=== PATIENT | male | born 1940 | race Two or more races ===

== ENCOUNTER 2019-02-26 23:28 | Inpatient (IN) | payer OTHER ==
[~2019-02-26] VITALS: Ht 165.1 cm; Wt 81.2 kg
[2019-02-27] VITALS (7 sets, daily range): BP systolic 118–154; BP diastolic 54–70
[2019-02-27] MEDS ORDERED: TAMS-12 PO (03:42)
[2019-02-27] MEDS ORDERED: ACET325C7 PO (03:42)
[2019-02-27] MEDS ORDERED: GUAI-717 PO (03:42)
[2019-02-27] MEDS ORDERED: PIOG15TA8 PO (03:42)
[2019-02-27] MEDS ORDERED: LEVO500T90 PO (03:42)
[2019-02-27] MEDS ORDERED: ASPI-1152 PO (03:42)
[2019-02-27] MEDS ORDERED: AMLO10TA7 PO (03:42)
[2019-02-27] MEDS ORDERED: FENO160T PO (03:42)
[2019-02-27] MEDS ORDERED: MAGNESIUM HYDROXIDE 30 ML UDC PO PRN (05:00)
[2019-02-27] MEDS ORDERED: HYDROCODONE/APAP 5/325MG 1 EACH TABLET PO PRN (05:00)
[2019-02-27] MEDS ORDERED: MAG HYDROX/AL HYDROX/SIMETH 30 ML UDC PO PRN (05:00)
[2019-02-27] MEDS ORDERED: Z GUARD REMEDY 2 OZ OINT TP PRN (05:00)
[2019-02-27 06:59] LABS: BASOPHILS % (AUTO) 0.3 % (0.0-2.0); HEMATOCRIT 30 % (39-51); HEMOGLOBIN 9.9 g/dL (13.5-17.5); LYMPHOCYTES # (AUTO) 0.5 /CMM (0.8-4.8); LYMPHOCYTES % (AUTO) 7.9 % (20.0-44.0); MEAN CORPUSCULAR HGB CONC 33 g/dl (31.0-36.0); MEAN CORPUSCULAR VOLUME 81 fL (80-96); MONOCYTES # (AUTO) 0.5 /CMM (0.1-1.30); MONOCYTES % (AUTO) 8.3 % (2.0-12.0); NEUTROPHILS # (AUTO) 4.6 /CMM (1.8-8.9); NEUTROPHILS % (AUTO) 73.5 % (43.0-81.0); PLATELET COUNT (AUTO) 273 /CMM (150-450); WHITE BLOOD COUNT (AUTO) 6.2 K/uL (4.3-11.0)
[2019-02-27 07:03] LABS: CALCIUM, SERUM 8.3 mg/dL (8.5-10.1); CARBON DIOXIDE 25 mmol/L (21-32); CHLORIDE 104 mmol/L (98-107); CREATININE 1.4 mg/dL (0.6-1.3); GLUCOSE 175 mg/dL (74-106); SODIUM SERUM 139 mmol/L (136-145); UREA NITROGEN, BLOOD 18 mg/dL (7-18)
[2019-02-27 07:15] LABS: ALANINE AMINOTRANSFERASE 35 U/L (12-78); ALKALINE PHOSPHATASE 113 U/L (46-116); ASPARTATE AMINOTRANSFERASE 31 U/L (15-37); BILIRUBIN,TOTAL 0.4 mg/dL (0.2-1.0); MAGNESIUM 1.8 mg/dL (1.8-2.4); PHOSPHORUS 3.2 mg/dL (2.5-4.9)
[2019-02-27 07:16] LABS: CHOLESTEROL 97 mg/dL (<200); LDL 40 mg/dL (0-99); THYROID STIMULATING HORMONE 1.185 uIU/mL (0.358-3.74); TRIGLYCERIDES 221 mg/dL (30-150)
[2019-02-27 07:42] LABS: HDL CHOLESTEROL < 10 mg/dL (40-60)
[2019-02-27] MEDS: TAMSULOSIN 0.4 MG CAP.SR.24H PO SCH (08:31)
[2019-02-27] MEDS: ASPIRIN EC 81 MG TABLET.DR PO SCH (08:31)
[2019-02-27] MEDS: PIOGLITAZONE HCL 15 MG TABLET PO SCH (08:33)
[2019-02-27] MEDS: AMLODIPINE BESYLATE 10 MG TABLET PO SCH (08:33)
[2019-02-27] MEDS: ACETAMINOPHEN 325 MG TABLET PO PRN (15:45)
[2019-02-27] MEDS: ONDANSETRON HCL/PF 4 MG/2 ML VIAL IVP PRN (18:27)
[2019-02-27] MEDS: AZITHROMYCIN 500 MG in IV D5W 250 ML IV SCH (20:22)
[2019-02-27] MEDS: CEFTRIAXONE 2 G in IV D5W 100 ML IV SCH (21:05)
[2019-02-28] MEDS: ACETAMINOPHEN 325 MG TABLET PO PRN ×3 (00:25→15:48)
[2019-02-28 06:23] LABS: BASOPHILS % (AUTO) 0.3 % (0.0-2.0); HEMATOCRIT 31 % (39-51); HEMOGLOBIN 10.2 g/dL (13.5-17.5); LYMPHOCYTES # (AUTO) 0.5 /CMM (0.8-4.8); LYMPHOCYTES % (AUTO) 6.7 % (20.0-44.0); MEAN CORPUSCULAR HGB CONC 33 g/dl (31.0-36.0); MEAN CORPUSCULAR VOLUME 80 fL (80-96); MONOCYTES # (AUTO) 0.5 /CMM (0.1-1.30); NEUTROPHILS # (AUTO) 5.2 /CMM (1.8-8.9); PLATELET COUNT (AUTO) 298 /CMM (150-450); RED BLOOD CELL COUNT(AUTO) 3.82 MIL/uL (4.5-6.0); WHITE BLOOD COUNT (AUTO) 6.8 K/uL (4.3-11.0)
[2019-02-28 06:43] LABS: THYROID STIMULATING HORMONE 1.328 uIU/mL (0.358-3.74)
[2019-02-28 07:50] LABS: CALCIUM, SERUM 8.4 mg/dL (8.5-10.1); CARBON DIOXIDE 25 mmol/L (21-32); CHLORIDE 100 mmol/L (98-107); CREATININE 1.5 mg/dL (0.6-1.3); GLUCOSE 195 mg/dL (74-106); PHOSPHORUS 2.5 mg/dL (2.5-4.9); SODIUM SERUM 135 mmol/L (136-145); UREA NITROGEN, BLOOD 15 mg/dL (7-18)
[2019-02-28 07:53] VITALS: BP 136/69
[2019-02-28 08:00] VITALS: BP 136/69
[2019-02-28 08:02] LABS: MAGNESIUM 1.8 mg/dL (1.8-2.4)
[2019-02-28] MEDS: IV NS 0.9% 1,000 ML IV SCH ×2 (09:12→22:18)
[2019-02-28] MEDS: TAMSULOSIN 0.4 MG CAP.SR.24H PO SCH (09:13)
[2019-02-28] MEDS: AMLODIPINE BESYLATE 10 MG TABLET PO SCH (09:13)
[2019-02-28] MEDS: ASPIRIN EC 81 MG TABLET.DR PO SCH (09:13)
[2019-02-28] MEDS: PIOGLITAZONE HCL 15 MG TABLET PO SCH (09:13)
[2019-02-28 16:00] VITALS: BP 140/63
[2019-02-28] MEDS: CEFTRIAXONE 2 G in IV D5W 100 ML IV SCH ×2 (18:19→20:37)
[2019-02-28] MEDS: AZITHROMYCIN 500 MG in IV D5W 250 ML IV SCH (19:25)
[2019-02-28 20:00] VITALS: BP 128/61
[2019-02-28] MEDS: GUAIFENESIN/D-METHORPHAN HB 5 ML UDC PO PRN (23:04)
[2019-03-01] MEDS: ACETAMINOPHEN 325 MG TABLET PO PRN ×2 (05:40→15:37)
[2019-03-01 07:12] LABS: BASOPHILS % (AUTO) 0.3 % (0.0-2.0); HEMATOCRIT 33 % (39-51); HEMOGLOBIN 10.7 g/dL (13.5-17.5); LYMPHOCYTES # (AUTO) 0.6 /CMM (0.8-4.8); LYMPHOCYTES % (AUTO) 5.6 % (20.0-44.0); MEAN CORPUSCULAR HGB CONC 33 g/dl (31.0-36.0); MEAN CORPUSCULAR VOLUME 80 fL (80-96); MONOCYTES # (AUTO) 0.7 /CMM (0.1-1.30); MONOCYTES % (AUTO) 6.9 % (2.0-12.0); NEUTROPHILS # (AUTO) 7.9 /CMM (1.8-8.9); NEUTROPHILS % (AUTO) 81.2 % (43.0-81.0); PLATELET COUNT (AUTO) 337 /CMM (150-450); RED BLOOD CELL COUNT(AUTO) 4.07 MIL/uL (4.5-6.0); WHITE BLOOD COUNT (AUTO) 9.8 K/uL (4.3-11.0)
[2019-03-01 07:20] LABS: CALCIUM, SERUM 8.7 mg/dL (8.5-10.1); CARBON DIOXIDE 25 mmol/L (21-32); CHLORIDE 96 mmol/L (98-107); CREATININE 1.6 mg/dL (0.6-1.3); GLUCOSE 230 mg/dL (74-106); POTASSIUM 4.1 mmol/L (3.5-5.1); SODIUM SERUM 128 mmol/L (136-145); UREA NITROGEN, BLOOD 16 mg/dL (7-18)
[2019-03-01 08:00] VITALS: BP 122/61
[2019-03-01] MEDS: ASPIRIN EC 81 MG TABLET.DR PO SCH (08:59)
[2019-03-01] MEDS: AMLODIPINE BESYLATE 10 MG TABLET PO SCH (08:59)
[2019-03-01] MEDS: TAMSULOSIN 0.4 MG CAP.SR.24H PO SCH (08:59)
[2019-03-01] MEDS: PIOGLITAZONE HCL 15 MG TABLET PO SCH (08:59)
[2019-03-01] MEDS: IV NS 0.9% 1,000 ML IV SCH ×2 (10:44→21:34)
[2019-03-01] MEDS ORDERED: DEXTROSE 50%-WATER 50 ML DISP.SYRIN IV PRN (11:30)
[2019-03-01] MEDS: INSULIN REGULAR, HUMAN 100 UNIT/ML 3 ML VIAL SQ PRN ×3 (12:09→21:33)
[2019-03-01] MEDS: BLOOD SUGAR DIAGNOSTIC 1 EACH STRIP IN SCH ×3 (12:16→21:32)
[2019-03-01 16:00] VITALS: BP 144/62
[2019-03-01] MEDS: AZITHROMYCIN 500 MG in IV D5W 250 ML IV SCH (19:29)
[2019-03-01] MEDS: GUAIFENESIN/D-METHORPHAN HB 5 ML UDC PO PRN (19:51)
[2019-03-01 20:00] VITALS: BP 135/68
[2019-03-01 20:26] LABS: APPEARANCE,URINE Clear (CLEAR); BILIRUBIN,URINE Negative (NEGATIVE); BLOOD, URINE Negative Ery/uL (NEGATIVE); COLOR,URINE Yellow (YELLOW); KETONES,URINE Negative (NEGATIVE); LEUKOCYTE ESTERASE ,URINE Negative (NEGATIVE); NITRITE, URINE Negative (NEGATIVE); PH,URINE 5.5 (5.0-8.0); PROTEIN,URINE 30 mg/dl (NEGATIVE); UGLUCOSE Negative (NEGATIVE)
[2019-03-01] MEDS: CEFTRIAXONE 2 G in IV D5W 100 ML IV SCH (20:32)
[2019-03-01 21:06] LABS: BACTERIA,URINE Rare /HPF (None Seen); RBC,URINE 0-2 /HPF (0-2); SQUAMOUS EPITHELIAL CELL,UR Rare /HPF (None Seen)
[2019-03-02] MEDS: ACETAMINOPHEN 325 MG TABLET PO PRN ×3 (00:28→18:02)
[2019-03-02] MEDS: GUAIFENESIN/D-METHORPHAN HB 5 ML UDC PO PRN (03:31)
[2019-03-02] MEDS: BLOOD SUGAR DIAGNOSTIC 1 EACH STRIP IN SCH ×4 (06:45→21:32)
[2019-03-02] MEDS: INSULIN REGULAR, HUMAN 100 UNIT/ML 3 ML VIAL SQ PRN ×4 (06:46→21:31)
[2019-03-02 08:00] VITALS: BP 104/50
[2019-03-02] MEDS: ASPIRIN EC 81 MG TABLET.DR PO SCH (08:55)
[2019-03-02] MEDS: TAMSULOSIN 0.4 MG CAP.SR.24H PO SCH (08:56)
[2019-03-02] MEDS: PIOGLITAZONE HCL 15 MG TABLET PO SCH (08:56)
[2019-03-02] MEDS: IV NS 0.9% 1,000 ML IV SCH (08:57)
[2019-03-02] MEDS ORDERED: FUROSEMIDE 40 MG/4 ML VIAL IV SCH (09:00)
[2019-03-02] MEDS: AMLODIPINE BESYLATE 10 MG TABLET PO SCH (09:00)
[2019-03-02] MEDS: FUROSEMIDE 40 MG/4 ML VIAL IV SCH ×3 (10:53→18:37)
[2019-03-02] MEDS: AZITHROMYCIN 250 MG TABLET PO SCH (18:00)
[2019-03-02] MEDS: CEFTRIAXONE 2 G in IV D5W 100 ML IV SCH (19:50)
[2019-03-02 20:00] VITALS: BP 138/63
[2019-03-03] MEDS: GUAIFENESIN/D-METHORPHAN HB 5 ML UDC PO PRN ×2 (03:00→06:40)
[2019-03-03] MEDS: ACETAMINOPHEN 325 MG TABLET PO PRN ×2 (03:10→15:15)
[2019-03-03 07:23] LABS: BASOPHILS # (AUTO) 0.3 /CMM (0.0-0.2); BASOPHILS % (AUTO) 2.5 % (0.0-2.0); EOSINOPHILS % (AUTO) 6.8 % (0.0-6.0); HEMATOCRIT 29 % (39-51); HEMOGLOBIN 9.9 g/dL (13.5-17.5); LYMPHOCYTES # (AUTO) 0.5 /CMM (0.8-4.8); LYMPHOCYTES % (AUTO) 4.7 % (20.0-44.0); MEAN CORPUSCULAR HGB CONC 34 g/dl (31.0-36.0); MEAN CORPUSCULAR VOLUME 78 fL (80-96); MONOCYTES # (AUTO) 0.4 /CMM (0.1-1.30); MONOCYTES % (AUTO) 3.5 % (2.0-12.0); NEUTROPHILS # (AUTO) 9.5 /CMM (1.8-8.9); NEUTROPHILS % (AUTO) 82.5 % (43.0-81.0); PLATELET COUNT (AUTO) 335 /CMM (150-450); RED BLOOD CELL COUNT(AUTO) 3.73 MIL/uL (4.5-6.0); WHITE BLOOD COUNT (AUTO) 11.5 K/uL (4.3-11.0)
[2019-03-03 07:41] LABS: ALANINE AMINOTRANSFERASE 46 U/L (12-78); ALBUMIN 1.7 g/dL (3.4-5.0); ALKALINE PHOSPHATASE 213 U/L (46-116); ASPARTATE AMINOTRANSFERASE 46 U/L (15-37); BILIRUBIN,TOTAL 0.6 mg/dL (0.2-1.0); CALCIUM, SERUM 8.4 mg/dL (8.5-10.1); CARBON DIOXIDE 28 mmol/L (21-32); CHLORIDE 95 mmol/L (98-107); CREATININE 1.8 mg/dL (0.6-1.3); GLUCOSE 226 mg/dL (74-106); MAGNESIUM 1.7 mg/dL (1.8-2.4); PHOSPHORUS 2.7 mg/dL (2.5-4.9); POTASSIUM 3.5 mmol/L (3.5-5.1); SODIUM SERUM 133 mmol/L (136-145); UREA NITROGEN, BLOOD 21 mg/dL (7-18)
[2019-03-03] MEDS: BLOOD SUGAR DIAGNOSTIC 1 EACH STRIP IN SCH ×4 (07:43→21:13)
[2019-03-03] MEDS: INSULIN REGULAR, HUMAN 100 UNIT/ML 3 ML VIAL SQ PRN ×4 (07:48→21:00)
[2019-03-03 08:00] VITALS: BP 123/65
[2019-03-03] MEDS: ASPIRIN EC 81 MG TABLET.DR PO SCH (08:17)
[2019-03-03] MEDS: PIOGLITAZONE HCL 15 MG TABLET PO SCH (08:17)
[2019-03-03] MEDS: TAMSULOSIN 0.4 MG CAP.SR.24H PO SCH (08:17)
[2019-03-03] MEDS ORDERED: Magnesium 1GM/D5W 100ML PREMIX 100 ML IV SCH (11:00)
[2019-03-03] MEDS: methylPREDNISolone SOD SUCC 40 MG/ML VIAL IV SCH ×2 (13:44→17:43)
[2019-03-03] MEDS: CODEINE/PROMETHAZINE HCL 5 ML UDC PO PRN (15:15)
[2019-03-03 16:00] VITALS: BP 118/61
[2019-03-03] MEDS: AZITHROMYCIN 250 MG TABLET PO SCH (17:17)
[2019-03-03 20:16] VITALS: BP 119/56
[2019-03-03] MEDS: CEFTRIAXONE 2 G in IV D5W 100 ML IV SCH (20:55)
[2019-03-04] MEDS: INSULIN REGULAR, HUMAN 100 UNIT/ML 3 ML VIAL SQ PRN ×4 (06:25→23:03)
[2019-03-04] MEDS: BLOOD SUGAR DIAGNOSTIC 1 EACH STRIP IN SCH ×4 (06:32→22:46)
[2019-03-04 07:23] LABS: BASOPHILS # (AUTO) 0.1 /CMM (0.0-0.2); BASOPHILS % (AUTO) 0.6 % (0.0-2.0); EOSINOPHILS % (AUTO) 0.4 % (0.0-6.0); HEMATOCRIT 30 % (39-51); LYMPHOCYTES # (AUTO) 0.8 /CMM (0.8-4.8); LYMPHOCYTES % (AUTO) 8.5 % (20.0-44.0); MEAN CORPUSCULAR HGB CONC 33 g/dl (31.0-36.0); MEAN CORPUSCULAR VOLUME 79 fL (80-96); MONOCYTES # (AUTO) 0.2 /CMM (0.1-1.30); MONOCYTES % (AUTO) 2.6 % (2.0-12.0); NEUTROPHILS % (AUTO) 87.9 % (43.0-81.0); PLATELET COUNT (AUTO) 337 /CMM (150-450); WHITE BLOOD COUNT (AUTO) 9.1 K/uL (4.3-11.0)
[2019-03-04 07:46] LABS: CALCIUM, SERUM 8.9 mg/dL (8.5-10.1); CARBON DIOXIDE 28 mmol/L (21-32); CHLORIDE 95 mmol/L (98-107); CREATININE 1.9 mg/dL (0.6-1.3); GLUCOSE 327 mg/dL (74-106); MAGNESIUM 2.4 mg/dL (1.8-2.4); POTASSIUM 4.1 mmol/L (3.5-5.1); SODIUM SERUM 133 mmol/L (136-145); UREA NITROGEN, BLOOD 41 mg/dL (7-18)
[2019-03-04 08:00] VITALS: BP 110/62
[2019-03-04 08:02] LABS: IRON, SERUM 19 ug/dl (50-175); TOTAL IRON BINDING CAPACITY 135 ug/dl (250-450)
[2019-03-04 08:32] LABS: BAND % (MANUAL) 1 % (0.0-5.0); LYMPHOCYTES % (MANUAL) 2 % (16-48); MONOCYTES % (MANUAL) 3 % (0-11.0); NEUTROPHILS % (MANUAL) 94 (42-76)
[2019-03-04 09:00] LABS: FERRITIN 667 ng/mL (8-388)
[2019-03-04] MEDS: ASPIRIN EC 81 MG TABLET.DR PO SCH (12:05)
[2019-03-04] MEDS: TAMSULOSIN 0.4 MG CAP.SR.24H PO SCH (12:05)
[2019-03-04] MEDS: PIOGLITAZONE HCL 15 MG TABLET PO SCH (12:05)
[2019-03-04] MEDS: methylPREDNISolone SOD SUCC 40 MG/ML VIAL IV SCH ×3 (12:05→18:21)
[2019-03-04] MEDS: CODEINE/PROMETHAZINE HCL 5 ML UDC PO PRN (15:47)
[2019-03-04] MEDS: GUAIFENESIN/D-METHORPHAN HB 5 ML UDC PO PRN (15:47)
[2019-03-04 16:00] VITALS: BP 125/65
[2019-03-04] MEDS: AZITHROMYCIN 250 MG TABLET PO SCH (18:21)
[2019-03-04 19:00] VITALS: BP 104/60
[2019-03-04 20:00] VITALS: BP 104/60
[2019-03-04] MEDS: CEFTRIAXONE 2 G in IV D5W 100 ML IV SCH (20:05)
[2019-03-05] MEDS: BLOOD SUGAR DIAGNOSTIC 1 EACH STRIP IN SCH ×4 (06:43→21:18)
[2019-03-05] MEDS: INSULIN REGULAR, HUMAN 100 UNIT/ML 3 ML VIAL SQ PRN ×4 (06:48→21:22)
[2019-03-05 08:14] VITALS: BP 106/79
[2019-03-05] MEDS: methylPREDNISolone SOD SUCC 40 MG/ML VIAL IV SCH ×3 (09:14→17:31)
[2019-03-05] MEDS: TAMSULOSIN 0.4 MG CAP.SR.24H PO SCH (09:14)
[2019-03-05] MEDS: ASPIRIN EC 81 MG TABLET.DR PO SCH (09:14)
[2019-03-05] MEDS: PIOGLITAZONE HCL 15 MG TABLET PO SCH (09:14)
[2019-03-05] MEDS: ONDANSETRON HCL/PF 4 MG/2 ML VIAL IVP PRN (12:42)
[2019-03-05 16:24] VITALS: BP 125/64
[2019-03-05] MEDS: AZITHROMYCIN 250 MG TABLET PO SCH (17:31)
[2019-03-05] MEDS ORDERED: ZOLPIDEM TARTRATE 5 MG TABLET PO PRN (19:00)
[2019-03-05 20:00] VITALS: BP 123/55
[2019-03-05] MEDS: CEFTRIAXONE 2 G in IV D5W 100 ML IV SCH (20:16)
[2019-03-06] MEDS: BLOOD SUGAR DIAGNOSTIC 1 EACH STRIP IN SCH ×3 (06:30→18:29)
[2019-03-06] MEDS: INSULIN REGULAR, HUMAN 100 UNIT/ML 3 ML VIAL SQ PRN ×2 (06:31→21:21)
[2019-03-06] MEDS: ACETAMINOPHEN 325 MG TABLET PO PRN ×2 (06:36→16:27)
[2019-03-06 07:57] LABS: BASOPHILS # (AUTO) 0.1 /CMM (0.0-0.2); BASOPHILS % (AUTO) 0.6 % (0.0-2.0); EOSINOPHILS % (AUTO) 0.1 % (0.0-6.0); HEMATOCRIT 30 % (39-51); HEMOGLOBIN 9.8 g/dL (13.5-17.5); LYMPHOCYTES # (AUTO) 0.3 /CMM (0.8-4.8); LYMPHOCYTES % (AUTO) 2.5 % (20.0-44.0); MEAN CORPUSCULAR HGB CONC 33 g/dl (31.0-36.0); MEAN CORPUSCULAR VOLUME 78 fL (80-96); MONOCYTES # (AUTO) 0.1 /CMM (0.1-1.30); MONOCYTES % (AUTO) 0.8 % (2.0-12.0); NEUTROPHILS # (AUTO) 13.1 /CMM (1.8-8.9); PLATELET COUNT (AUTO) 433 /CMM (150-450); RED BLOOD CELL COUNT(AUTO) 3.81 MIL/uL (4.5-6.0); WHITE BLOOD COUNT (AUTO) 13.6 K/uL (4.3-11.0)
[2019-03-06 08:21] LABS: CALCIUM, SERUM 8.7 mg/dL (8.5-10.1); CARBON DIOXIDE 29 mmol/L (21-32); CHLORIDE 96 mmol/L (98-107); CREATININE 1.7 mg/dL (0.6-1.3); GLUCOSE 299 mg/dL (74-106); POTASSIUM 4.4 mmol/L (3.5-5.1); SODIUM SERUM 133 mmol/L (136-145); UREA NITROGEN, BLOOD 58 mg/dL (7-18)
[2019-03-06] MEDS: methylPREDNISolone SOD SUCC 40 MG/ML VIAL IV SCH ×3 (08:31→16:27)
[2019-03-06] MEDS: PIOGLITAZONE HCL 15 MG TABLET PO SCH (08:32)
[2019-03-06] MEDS: ASPIRIN EC 81 MG TABLET.DR PO SCH (08:32)
[2019-03-06] MEDS: TAMSULOSIN 0.4 MG CAP.SR.24H PO SCH (08:32)
[2019-03-06 08:33] VITALS: BP 134/63
[2019-03-06 16:10] VITALS: BP 133/64
[2019-03-06] MEDS: AZITHROMYCIN 250 MG TABLET PO SCH (16:27)
[2019-03-06 20:00] VITALS: BP 128/69
[2019-03-06 20:10] VITALS: BP 128/69
[2019-03-06] MEDS: CEFTRIAXONE 2 G in IV D5W 100 ML IV SCH (21:00)
[2019-03-06] MEDS ORDERED: DEXTROSE 50%-WATER 50 ML DISP.SYRIN IV PRN ×2 (22:00)
[2019-03-06] MEDS ORDERED: ALBUTEROL FS 2.5 MG/0.5 ML VIAL.NEB NEB PRN (22:00)
[2019-03-06] MEDS ORDERED: IPRATROPIUM BROMIDE 14 GM INHALER (or 12.9 GM) IH PRN (22:00)
[2019-03-06 23:06] LABS: *MYCOPLASMA PNEUMONIAE IgG 112 U/mL (0-99); *MYCOPLASMA PNEUMONIAE IgM <770 U/mL (0-769)
[2019-03-06] MEDS ORDERED: IPRATROPIUM BROMIDE 14 GM INHALER (or 12.9 GM) IH SCH (23:30)
[2019-03-06] MEDS ORDERED: FUROSEMIDE 20 MG/2 ML VIAL IV ONE (23:30)
[2019-03-07] VITALS (18 sets, daily range): BP systolic 107–160; BP diastolic 54–101
[2019-03-07] MEDS: IPRATROPIUM NEB FS 0.5 MG/2.5 ML AMPUL.NEB NEB SCH ×5 (00:32→19:53)
[2019-03-07] MEDS: ALBUTEROL FS 2.5 MG/0.5 ML VIAL.NEB NEB SCH ×5 (00:32→19:53)
[2019-03-07] MEDS: BLOOD SUGAR DIAGNOSTIC 1 EACH STRIP IN SCH ×6 (01:25→21:38)
[2019-03-07] MEDS: INSULIN REGULAR, HUMAN 100 UNIT/ML 3 ML VIAL SQ PRN ×3 (01:26→17:16)
[2019-03-07] MEDS ORDERED: FUROSEMIDE 40 MG/4 ML VIAL IV SCH (02:00)
[2019-03-07] MEDS: ACETAMINOPHEN 325 MG TABLET PO PRN ×2 (04:26→11:39)
[2019-03-07 05:31] LABS: BASOPHILS # (AUTO) 0.2 /CMM (0.0-0.2); BASOPHILS % (AUTO) 1.6 % (0.0-2.0); HEMATOCRIT 33 % (39-51); HEMOGLOBIN 10.9 g/dL (13.5-17.5); LYMPHOCYTES # (AUTO) 0.3 /CMM (0.8-4.8); LYMPHOCYTES % (AUTO) 2.2 % (20.0-44.0); MEAN CORPUSCULAR HGB CONC 33 g/dl (31.0-36.0); MEAN CORPUSCULAR VOLUME 80 fL (80-96); MONOCYTES % (AUTO) 0.3 % (2.0-12.0); NEUTROPHILS # (AUTO) 13.6 /CMM (1.8-8.9); NEUTROPHILS % (AUTO) 95.9 % (43.0-81.0); PLATELET COUNT (AUTO) 456 /CMM (150-450); RED BLOOD CELL COUNT(AUTO) 4.21 MIL/uL (4.5-6.0); WHITE BLOOD COUNT (AUTO) 14.2 K/uL (4.3-11.0)
[2019-03-07 06:03] LABS: CALCIUM, SERUM 8.7 mg/dL (8.5-10.1); CARBON DIOXIDE 31 mmol/L (21-32); CHLORIDE 95 mmol/L (98-107); CREATININE 1.9 mg/dL (0.6-1.3); GLUCOSE 340 mg/dL (74-106); SODIUM SERUM 134 mmol/L (136-145); UREA NITROGEN, BLOOD 53 mg/dL (7-18)
[2019-03-07] MEDS ORDERED: BUMETANIDE INJ 8 MG in IV NS 0.9% 48 ML IV ONE (06:30)
[2019-03-07 06:58] LABS: ABG BASE EXCESS 2.9 mmol/L; ABG OXYGEN SATURATION 81.7 % (92.0-98.5); ABG PCO2 39.2 mmHg (35.0-45.0); ABG PH 7.455 (7.350-7.450); ABG PO2 49.2 mmHg (75.0-100.0); AaDO2 400.5 mmHg; COHb 0.1 % (0.5-1.5); MetHb 0.4 % (0.0-1.5); O2Hb 81.3 % (94.0-97.0); SITE, ABG Right Radial; VENT MODE, BG SIMPLE MASK
[2019-03-07] MEDS ORDERED: *INSULIN REGULAR(HUMULIN R)HUM 100 UNIT/ML VIAL SQ PRN ×2 (07:00→07:30)
[2019-03-07] MEDS ORDERED: INSULIN REGULAR, HUMAN 100 UNIT/ML 3 ML VIAL SQ PRN ×3 (07:00→10:30)
[2019-03-07 07:31] LABS: ABG BASE EXCESS 7.5 mmol/L; ABG OXYGEN SATURATION 97.9 % (92.0-98.5); ABG PCO2 40.2 mmHg (35.0-45.0); ABG PH 7.507 (7.350-7.450); ABG PO2 135.4 mmHg (75.0-100.0); AaDO2 537.4 mmHg; COHb 0.3 % (0.5-1.5); MetHb 0.6 % (0.0-1.5)
[2019-03-07] MEDS: methylPREDNISolone SOD SUCC 40 MG/ML VIAL IV SCH ×3 (09:30→17:16)
[2019-03-07] MEDS: ASPIRIN EC 81 MG TABLET.DR PO SCH (09:30)
[2019-03-07] MEDS: TAMSULOSIN 0.4 MG CAP.SR.24H PO SCH (09:30)
[2019-03-07] MEDS ORDERED: BLOOD SUGAR DIAGNOSTIC 1 EACH STRIP IN SCH (10:30)
[2019-03-07] MEDS ORDERED: DEXTROSE 50%-WATER 50 ML DISP.SYRIN IV PRN ×2 (10:30→13:30)
[2019-03-07] MEDS: MICAFUNGIN SODIUM 50 MG in IV NS 0.9% 100 ML IV SCH (11:40)
[2019-03-07] MEDS: AZITHROMYCIN 250 MG TABLET PO SCH (17:16)
[2019-03-07] MEDS ORDERED: FEE PK DOSING 1 MIN EA MC ONE (19:45)
[2019-03-07] MEDS: CEFEPIME 1 GM in IV D5W 50 ML IV SCH (21:06)
[2019-03-07] MEDS: VANCOMYCIN 0.75 GM in IV D5W 250 ML IV SCH (21:07)
[2019-03-07] MEDS: *INSULIN REGULAR(HUMULIN R)HUM 100 UNIT/ML VIAL SQ PRN (21:41)
[2019-03-08] VITALS (26 sets, daily range): BP systolic 99–154; BP diastolic 47–72
[2019-03-08 02:03] LABS: ABG BASE EXCESS 9.4 mmol/L; ABG PCO2 41.6 mmHg (35.0-45.0); ABG PH 7.519 (7.350-7.450); AaDO2 577.2 mmHg; COHb 0.3 % (0.5-1.5); MetHb 0.7 % (0.0-1.5); O2Hb 88.1 % (94.0-97.0); SITE, ABG Right Brachial; VENT MODE, BG HIGH FLOW 50L 95%
[2019-03-08 04:56] LABS: BASOPHILS # (AUTO) 0.2 /CMM (0.0-0.2); BASOPHILS % (AUTO) 1.5 % (0.0-2.0); EOSINOPHILS % (AUTO) 0.1 % (0.0-6.0); HEMATOCRIT 33 % (39-51); HEMOGLOBIN 10.9 g/dL (13.5-17.5); LYMPHOCYTES # (AUTO) 0.2 /CMM (0.8-4.8); LYMPHOCYTES % (AUTO) 1.7 % (20.0-44.0); MEAN CORPUSCULAR HGB CONC 33 g/dl (31.0-36.0); MEAN CORPUSCULAR VOLUME 80 fL (80-96); MONOCYTES % (AUTO) 0.2 % (2.0-12.0); NEUTROPHILS # (AUTO) 11.4 /CMM (1.8-8.9); NEUTROPHILS % (AUTO) 96.5 % (43.0-81.0); PLATELET COUNT (AUTO) 388 /CMM (150-450); RED BLOOD CELL COUNT(AUTO) 4.15 MIL/uL (4.5-6.0); WHITE BLOOD COUNT (AUTO) 11.8 K/uL (4.3-11.0)
[2019-03-08 05:01] LABS: ALANINE AMINOTRANSFERASE 34 U/L (12-78); ALBUMIN 1.8 g/dL (3.4-5.0); ALKALINE PHOSPHATASE 155 U/L (46-116); ASPARTATE AMINOTRANSFERASE 30 U/L (15-37); BILIRUBIN,TOTAL 0.5 mg/dL (0.2-1.0); CALCIUM, SERUM 8.3 mg/dL (8.5-10.1); CARBON DIOXIDE 36 mmol/L (21-32); CHLORIDE 90 mmol/L (98-107); CREATININE 1.7 mg/dL (0.6-1.3); GLUCOSE 305 mg/dL (74-106); MAGNESIUM 2.1 mg/dL (1.8-2.4); PHOSPHORUS 4.3 mg/dL (2.5-4.9); POTASSIUM 3.6 mmol/L (3.5-5.1); SODIUM SERUM 134 mmol/L (136-145); TOTAL PROTEIN, SERUM 6.5 g/dL (6.4-8.2); UREA NITROGEN, BLOOD 52 mg/dL (7-18)
[2019-03-08] MEDS: IPRATROPIUM NEB FS 0.5 MG/2.5 ML AMPUL.NEB NEB SCH ×4 (07:22→19:19)
[2019-03-08] MEDS: ALBUTEROL FS 2.5 MG/0.5 ML VIAL.NEB NEB SCH ×4 (07:22→19:19)
[2019-03-08] MEDS: INSULIN REGULAR, HUMAN 100 UNIT/ML 3 ML VIAL SQ PRN ×3 (07:23→17:30)
[2019-03-08] MEDS: BLOOD SUGAR DIAGNOSTIC 1 EACH STRIP IN SCH ×4 (07:24→22:37)
[2019-03-08] MEDS: TAMSULOSIN 0.4 MG CAP.SR.24H PO SCH (08:21)
[2019-03-08] MEDS: methylPREDNISolone SOD SUCC 40 MG/ML VIAL IV SCH ×3 (08:21→17:28)
[2019-03-08] MEDS: ACETAMINOPHEN 325 MG TABLET PO PRN ×2 (08:21→18:58)
[2019-03-08] MEDS: ASPIRIN EC 81 MG TABLET.DR PO SCH (08:21)
[2019-03-08] MEDS: CEFEPIME 1 GM in IV D5W 50 ML IV SCH (08:22)
[2019-03-08] MEDS ORDERED: BUMETANIDE INJ 0.25 MG/ML VIAL IV SCH (09:30)
[2019-03-08] MEDS: MICAFUNGIN SODIUM 50 MG in IV NS 0.9% 100 ML IV SCH (10:36)
[2019-03-08 10:50] LABS: ABG BASE EXCESS 9.8 mmol/L; ABG OXYGEN SATURATION 95.8 % (92.0-98.5); ABG PCO2 41.9 mmHg (35.0-45.0); ABG PH 7.521 (7.350-7.450); ABG PO2 84.9 mmHg (75.0-100.0); AaDO2 586.2 mmHg; COHb 0.3 % (0.5-1.5); MetHb 0.5 % (0.0-1.5); SITE, ABG Right Brachial; VENT MODE, BG 100% high flow nasal cann
[2019-03-08] MEDS: VANCOMYCIN 0.75 GM in IV D5W 250 ML IV SCH (14:44)
[2019-03-08] MEDS: GLUCERNA SHAKE 237 ML CAN PO SCH (17:30)
[2019-03-08] MEDS: MEROPENEM 500 MG in IV NS 0.9% 50 ML IV SCH (20:00)
[2019-03-08] MEDS ORDERED: INSULIN DETEMIR 100 UNIT/ML CARTRIDGE SQ SCH (22:00)
[2019-03-08] MEDS: INSULIN GLARGINE, 100 UNIT/ML CARTRIDGE SQ SCH (22:38)
[2019-03-09] VITALS (24 sets, daily range): BP systolic 107–154; BP diastolic 52–94
[2019-03-09] MEDS: ACETAMINOPHEN 325 MG TABLET PO PRN ×3 (00:48→16:28)
[2019-03-09] MEDS: GUAIFENESIN/D-METHORPHAN HB 5 ML UDC PO PRN ×3 (00:48→21:20)
[2019-03-09 04:27] LABS: CALCIUM, SERUM 8.4 mg/dL (8.5-10.1); CARBON DIOXIDE 37 mmol/L (21-32); CHLORIDE 92 mmol/L (98-107); GLUCOSE 176 mg/dL (74-106); POTASSIUM 3.5 mmol/L (3.5-5.1); SODIUM SERUM 134 mmol/L (136-145)
[2019-03-09 04:38] LABS: UREA NITROGEN, BLOOD 63 mg/dL (7-18)
[2019-03-09] MEDS: BLOOD SUGAR DIAGNOSTIC 1 EACH STRIP IN SCH ×4 (07:35→22:16)
[2019-03-09 07:43] LABS: ABG BASE EXCESS 9.6 mmol/L; ABG OXYGEN SATURATION 82.8 % (92.0-98.5); ABG PCO2 40.1 mmHg (35.0-45.0); ABG PH 7.533 (7.350-7.450); AaDO2 625.9 mmHg; COHb 0.4 % (0.5-1.5); MetHb 0.3 % (0.0-1.5); O2Hb 82.2 % (94.0-97.0); SITE, ABG Left Brachial
[2019-03-09] MEDS: IPRATROPIUM NEB FS 0.5 MG/2.5 ML AMPUL.NEB NEB SCH ×4 (07:53→19:42)
[2019-03-09] MEDS: ALBUTEROL FS 2.5 MG/0.5 ML VIAL.NEB NEB SCH ×4 (07:53→19:42)
[2019-03-09] MEDS: GLUCERNA SHAKE 237 ML CAN PO SCH ×2 (08:00→17:00)
[2019-03-09] MEDS: methylPREDNISolone SOD SUCC 40 MG/ML VIAL IV SCH ×3 (08:20→18:11)
[2019-03-09] MEDS: MEROPENEM 500 MG in IV NS 0.9% 50 ML IV SCH ×2 (08:20→21:21)
[2019-03-09] MEDS: INSULIN REGULAR, HUMAN 100 UNIT/ML 3 ML VIAL SQ PRN ×3 (08:27→18:12)
[2019-03-09] MEDS: ASPIRIN EC 81 MG TABLET.DR PO SCH (09:00)
[2019-03-09] MEDS: TAMSULOSIN 0.4 MG CAP.SR.24H PO SCH (09:00)
[2019-03-09] MEDS: VANCOMYCIN 0.75 GM in IV D5W 250 ML IV SCH (09:26)
[2019-03-09 09:59] LABS: BASOPHILS # (AUTO) 0.1 /CMM (0.0-0.2); BASOPHILS % (AUTO) 2.2 % (0.0-2.0); EOSINOPHILS % (AUTO) 0.3 % (0.0-6.0); HEMATOCRIT 33 % (39-51); HEMOGLOBIN 10.9 g/dL (13.5-17.5); LYMPHOCYTES # (AUTO) 0.2 /CMM (0.8-4.8); MEAN CORPUSCULAR HGB CONC 33 g/dl (31.0-36.0); MEAN CORPUSCULAR VOLUME 79 fL (80-96); MONOCYTES % (AUTO) 0.7 % (2.0-12.0); NEUTROPHILS # (AUTO) 5.6 /CMM (1.8-8.9); NEUTROPHILS % (AUTO) 93.8 % (43.0-81.0); PLATELET COUNT (AUTO) 295 /CMM (150-450); RED BLOOD CELL COUNT(AUTO) 4.17 MIL/uL (4.5-6.0)
[2019-03-09] MEDS: MICAFUNGIN SODIUM 50 MG in IV NS 0.9% 100 ML IV SCH (10:35)
[2019-03-09] MEDS ORDERED: AZITHROMYCIN 500 MG in IV D5W 250 ML IV SCH (20:00)
[2019-03-09] MEDS ORDERED: CODEINE/PROMETHAZINE HCL 5 ML UDC ONE (21:33)
[2019-03-09] MEDS: CODEINE/PROMETHAZINE HCL 5 ML UDC PO PRN (21:46)
[2019-03-09] MEDS: *INSULIN REGULAR(HUMULIN R)HUM 100 UNIT/ML VIAL SQ PRN (22:14)
[2019-03-09] MEDS: INSULIN GLARGINE, 100 UNIT/ML CARTRIDGE SQ SCH (22:15)
[2019-03-10] VITALS (76 sets, daily range): BP systolic 43–147; BP diastolic 25–97
[2019-03-10] MEDS: ACETAMINOPHEN 650 MG/SUPP.RECT RC PRN ×2 (01:08→05:17)
[2019-03-10 02:50] LABS: ABG BASE EXCESS 8.4 mmol/L; ABG OXYGEN SATURATION 92.6 % (92.0-98.5); ABG PCO2 42.8 mmHg (35.0-45.0); ABG PH 7.498 (7.350-7.450); ABG PO2 69.7 mmHg (75.0-100.0); AaDO2 600.5 mmHg; COHb 0.3 % (0.5-1.5); MetHb 0.6 % (0.0-1.5); O2Hb 91.8 % (94.0-97.0); SITE, ABG Right Radial; VENT MODE, BG Bipap 20/10 100% RR16
[2019-03-10] MEDS ORDERED: VANCOMYCIN 1 GM in IV D5W 250ml IV SCH (03:00)
[2019-03-10 04:20] LABS: HEMOGLOBIN 11.7 g/dL (13.5-17.5); MONOCYTES # (AUTO) 0.1 /CMM (0.1-1.30); NEUTROPHILS # (AUTO) 2.4 /CMM (1.8-8.9)
[2019-03-10 04:25] LABS: BASOPHILS % (AUTO) 0.4 % (0.0-2.0); EOSINOPHILS % (AUTO) 1.7 % (0.0-6.0); HEMATOCRIT 36 % (39-51); LYMPHOCYTES # (AUTO) 0.1 /CMM (0.8-4.8); LYMPHOCYTES % (AUTO) 2.3 % (20.0-44.0); MEAN CORPUSCULAR HGB CONC 33 g/dl (31.0-36.0); MEAN CORPUSCULAR VOLUME 80 fL (80-96); NEUTROPHILS % (AUTO) 93.6 % (43.0-81.0); PLATELET COUNT (AUTO) 183 /CMM (150-450); RED BLOOD CELL COUNT(AUTO) 4.47 MIL/uL (4.5-6.0); WHITE BLOOD COUNT (AUTO) 2.6 K/uL (4.3-11.0)
[2019-03-10 04:33] LABS: CALCIUM, SERUM 8.3 mg/dL (8.5-10.1); CARBON DIOXIDE 36 mmol/L (21-32); CHLORIDE 92 mmol/L (98-107); CREATININE 2.2 mg/dL (0.6-1.3); GLUCOSE 169 mg/dL (74-106); MAGNESIUM 2.5 mg/dL (1.8-2.4); PHOSPHORUS 4.3 mg/dL (2.5-4.9); POTASSIUM 3.8 mmol/L (3.5-5.1); SODIUM SERUM 135 mmol/L (136-145); UREA NITROGEN, BLOOD 69 mg/dL (7-18)
[2019-03-10] MEDS: GLUCERNA SHAKE 237 ML CAN PO SCH ×2 (08:00→17:00)
[2019-03-10] MEDS: IPRATROPIUM NEB FS 0.5 MG/2.5 ML AMPUL.NEB NEB SCH ×4 (08:23→20:03)
[2019-03-10] MEDS: ALBUTEROL FS 2.5 MG/0.5 ML VIAL.NEB NEB SCH ×4 (08:23→20:03)
[2019-03-10] MEDS: INSULIN REGULAR, HUMAN 100 UNIT/ML 3 ML VIAL SQ PRN ×2 (08:27→11:42)
[2019-03-10] MEDS: BLOOD SUGAR DIAGNOSTIC 1 EACH STRIP IN SCH ×3 (08:28→18:24)
[2019-03-10 08:33] LABS: ABG OXYGEN SATURATION 84.8 % (92.0-98.5); ABG PCO2 37.4 mmHg (35.0-45.0); ABG PH 7.498 (7.350-7.450); AaDO2 623.6 mmHg; COHb 0.3 % (0.5-1.5); MetHb 0.5 % (0.0-1.5); O2Hb 84.1 % (94.0-97.0); SITE, ABG Left Radial; VENT MODE, BG ST 20/10 100%
[2019-03-10] MEDS: ASPIRIN EC 81 MG TABLET.DR PO SCH (09:00)
[2019-03-10] MEDS: TAMSULOSIN 0.4 MG CAP.SR.24H PO SCH (09:00)
[2019-03-10] MEDS: methylPREDNISolone SOD SUCC 40 MG/ML VIAL IV SCH ×3 (09:19→17:27)
[2019-03-10] MEDS: MEROPENEM 500 MG in IV NS 0.9% 50 ML IV SCH (09:19)
[2019-03-10] MEDS: MICAFUNGIN SODIUM 50 MG in IV NS 0.9% 100 ML IV SCH (11:15)
[2019-03-10 14:20] LABS: ABG OXYGEN SATURATION 78.8 % (92.0-98.5); ABG PCO2 39.5 mmHg (35.0-45.0); ABG PH 7.467 (7.350-7.450); ABG PO2 45.8 mmHg (75.0-100.0); AaDO2 627.7 mmHg; COHb 0.1 % (0.5-1.5); MetHb 0.6 % (0.0-1.5); O2Hb 78.2 % (94.0-97.0); SITE, ABG Left Radial; VENT MODE, BG ST 20/12 R 16
[2019-03-10] MEDS ORDERED: Calcium Gluconate 0.465 MEQ/ML VIAL IV ONE (14:45)
[2019-03-10] MEDS ORDERED: DILTIAZEM HCL 50 MG IV ONE (14:46)
[2019-03-10] MEDS ORDERED: FENTANYL PF 100MCG/2ML AMPUL ONE (14:51)
[2019-03-10] MEDS ORDERED: AMIODARONE 150 MG in IV D5W 100 ML IV STA (14:56)
[2019-03-10] MEDS ORDERED: SUCCINYLCHOLINE CHLORIDE 20 MG/ML VIAL IV ONE (15:21)
[2019-03-10] MEDS ORDERED: ETOMIDATE 2 MG/ML VIAL IV ONE (15:21)
[2019-03-10] MEDS ORDERED: AMIODARONE 900 MG in IV D5W 482 ML IV PRN (15:30)
[2019-03-10] MEDS ORDERED: PROPOFOL 100 ML IV PRN (15:30)
[2019-03-10] MEDS ORDERED: NOREPINEPHRINE 8 MG in IV D5W 500 ML IV STA (15:37)
[2019-03-10 16:26] LABS: ABG BASE EXCESS -9.1 mmol/L; ABG OXYGEN SATURATION 77.8 % (92.0-98.5); ABG PCO2 53.3 mmHg (35.0-45.0); ABG PH 7.176 (7.350-7.450); AaDO2 601.7 mmHg; COHb 0.3 % (0.5-1.5); MetHb 0.7 % (0.0-1.5); SITE, ABG Left Radial; VENT MODE, BG AC 18 500 100% +15
[2019-03-10] MEDS: PHENYLEPHRINE 40 MG in IV D5W 250 ML IV PRN ×2 (17:27→20:16)
[2019-03-10 17:39] LABS: ABG BASE EXCESS -13.3 mmol/L; ABG OXYGEN SATURATION 82.4 % (92.0-98.5); ABG PCO2 51.5 mmHg (35.0-45.0); ABG PH 7.108 (7.350-7.450); ABG PO2 68.1 mmHg (75.0-100.0); AaDO2 593.4 mmHg; COHb 0.3 % (0.5-1.5); MetHb 0.6 % (0.0-1.5); O2Hb 81.7 % (94.0-97.0); SITE, ABG Left Radial; VENT MODE, BG AC 26 500 100% +5
[2019-03-10] MEDS ORDERED: ALBUMIN 25% 12.5 GM/50 ML BOTTLE IV ONE (19:00)
[2019-03-10] MEDS ORDERED: VASOPRESSIN INJ 50 UNIT in IV D5W 497.5 ML IV PRN (19:30)
[2019-03-10] MEDS ORDERED: PHENYLEPHRINE 80 MG in IV D5W 250 ML IV PRN (19:30)
[2019-03-10] MEDS: NOREPINEPHRINE 16 MG in IV D5W 500 ML IV PRN ×2 (19:49→20:43)
[2019-03-10] MEDS ORDERED: ACETAMINOPHEN 650 MG/20.3 ML UDC NG PRN (20:30)
[2019-03-10] MEDS ORDERED: SODIUM BICARBONATE SYR 50 MEQ/50 ML DISP.SYRIN IV ONE (21:00)
[2019-03-10] MEDS ORDERED: MORPHINE SULFATE INJ 4 MG/ML DISP.SYRIN IV PRN (21:00)
[2019-03-10] MEDS ORDERED: MORPHINE SULFATE INJ 4 MG/ML DISP.SYRIN ONE (21:18)
[2019-03-10] MEDS ORDERED: CALCIUM CHLORIDE 1,000 MG/10 ML DISP.SYRIN IV ONE (21:46)
[2019-03-10] MEDS ORDERED: ADENOSINE 6 MG/2 ML VIAL IVP ONE (21:46)
[2019-03-10] MEDS ORDERED: LORAZEPAM INJ 2 MG/ML VIAL IV PRN (22:00)
== END 2019-03-10 21:47 | disposition expired | DRG 208 ==
LOC: TELE 02-27 02:27 → MED 02-27 09:32 → ICU 03-07 03:51
PROVIDERS: ADMIT Student in an Organized Health Care Education/Training Program; ATTEND Nurse Practitioner Acute Care
PROC: 5A2204Z Restoration of Cardiac Rhythm, Single (ICD-10-PCS; principal; 2019-03-10)
PROC: 06HY33Z Insertion of Infusion Device into Lower Vein, Percutaneous Approach (ICD-10-PCS; principal; 2019-03-10)
PROC: 5A1935Z Respiratory Ventilation, Less than 24 Consecutive Hours (ICD-10-PCS; principal; 2019-03-10)
PROC: B54BZZA Ultrasonography of Right Lower Extremity Veins, Guidance (ICD-10-PCS; principal; 2019-03-10)
PROC: 0BH18EZ Insertion of Endotracheal Airway into Trachea, Via Natural or Artificial Opening Endoscopic (ICD-10-PCS; principal; 2019-03-10)
DX: J15.9 Unspecified bacterial pneumonia (principal); J96.02 Acute respiratory failure with hypercapnia; E43 Unspecified severe protein-calorie malnutrition; N17.0 Acute kidney failure with tubular necrosis; J96.01 Acute respiratory failure with hypoxia; E87.1 Hypo-osmolality and hyponatremia; E87.2 Acidosis; J84.9 Interstitial pulmonary disease, unspecified; I50.32 Chronic diastolic (congestive) heart failure; I48.91 Unspecified atrial fibrillation; Z51.5 Encounter for palliative care; D63.8 Anemia in other chronic diseases classified elsewhere; E03.9 Hypothyroidism, unspecified; E11.22 Type 2 diabetes mellitus with diabetic chronic kidney disease; E11.65 Type 2 diabetes mellitus with hyperglycemia; E78.1 Pure hyperglyceridemia; K21.9 Gastro-esophageal reflux disease without esophagitis; N18.9 Chronic kidney disease, unspecified; N40.0 Benign prostatic hyperplasia without lower urinary tract symptoms; E86.0 Dehydration; D72.819 Decreased white blood cell count, unspecified; E88.09 Other disorders of plasma-protein metabolism, not elsewhere classified; I11.0 Hypertensive heart disease with heart failure; Z68.29 Body mass index [BMI] 29.0-29.9, adult; R59.0 Localized enlarged lymph nodes; I25.10 Atherosclerotic heart disease of native coronary artery without angina pectoris; I95.9 Hypotension, unspecified; Z79.4 Long term (current) use of insulin
CPT/HCPCS: 31720; 36415; 36600; 71045-TC; 71250-TC; 80048-TC; 80053-TC; 80061-TC; 80202-TC; 81000-TC; 82728-TC; 82803-TC; 82945-TC; 82962-TC; 83540-TC; 83605-TC; 83735-TC; 83880; 84100-TC; 84443-TC; 84484-TC; 85025-TC; 86713; 86738; 87040-TC; 87070-TC; 87081-TC; 87086-TC; 93307-TC; 94002-TC; 94799-TC; A4216; A6403; C1751; G0378; J0153; J0282; J0330; J0456; J0610; J0692; J0696; J1815; J1940; J2060; J2185; J2248; J2270; J2370; J2405; J2920; J3010; J3370; J3475; J3490; J7030; J7050; J7060; P9047